=== PATIENT | female | born 1980 | race Hispanic/Latino ===

== ENCOUNTER 2021-11-19 21:32 | Emergency (ER) | payer OTHER, MEDICAID, SELFPAY ==
[2021-11-19 21:48] VITALS: BP 126/72; PULSE 91; RESP 18; TEMP 36.6; O2SAT 98; BMI 26.5
[2021-11-19 21:57] LABS: Bacteria Urine Moderate (10-30); Culture Indicated Urine Specimen Cultured; Mucus Urine 2+ (Negative); RBC Urine 0-1/HPF (0-5/HPF); Squamous Epithelial Cell Urine 1-5 /HPF (0-5/HPF); WBC Urine 30-100/HPF (0-5/HPF)
[2021-11-19 22:29] VITALS: BP 126/72; PULSE 91; RESP 19; O2SAT 98
--- NOTE | 2021-11-19 23:03 | PC.NURSE ---
States she feels a buldge in her perinem
--- NOTE | 2021-11-19 23:05 | PC.NURSE ---
pt states there is a buldge she can feel when when urinating.
--- NOTE | 2021-11-19 23:17 | ED_ITS ---
HPI - Female Genitourinary General Chief complaint: Urogenital-Female Stated complaint: Uti Time Seen by Provider: 11/19/21 23:09 Source: patient Mode of arrival: Ambulatory History of Present Illness HPI Narrative: Patient is a 41-year-old female who presents with painful frequent urination. sHe says it started arm 5:00 p.m. this afternoon she denies any abdominal pain fever or flank pain. She also has a known uterine prolapse which is stable at the time. Related Data Previous Rx's Medication Instructions Recorded medroxyprogesterone 10 mg tablet 10 mg PO SEE INSTRUCTIONS #30 tab 07/09/17 cephalexin 500 mg capsule 500 mg PO BID 5 Days #10 cap 11/19/21 phenazopyridine 100 mg tablet 100 mg PO TID PRN #6 tab 11/19/21 (Pyridium) Allergies Allergy/AdvReac Type Severity Reaction Status Date / Time codeine [CODEINE] Allergy Severe Unverified 01/05/18 12:55 sulfamethoxazole Allergy Severe Unverified 01/05/18 12:55 [From ] trimethoprim [From ] Allergy Severe Unverified 01/05/18 12:55 Review of Systems Review of Systems Narrative: GENERAL: Denies chills,fever HEENT: Denies throat pain RESPIRATORY: Denies dyspnea, cough, wheezing CARDIOVASCULAR: Denies chest pain, palpitations GASTROINTESTINAL: Denies nausea, vomiting : See HPI MUSCULOSKELETAL: Denies extremity pain, injury SKIN: No rash, no laceration, no pruritus NEUROLOGIC: Denies weakness, dizziness, headache, numbness 8 point review of systems is negative except for those stated above and HPI Patient History Surgical History Status post loop electrosurgical excision procedure (LEEP) of cervix alcohol intake frequency: a few times a month Substance Use Type: does not use Exam Initial Vital Signs Initial Vital Signs: Vital Signs Temperature 98 F 11/19/21 21:48 Pulse Rate 91 H 11/19/21 21:48 Respiratory Rate 18 11/19/21 21:48 Blood Pressure 126/72 11/19/21 21:48 Pulse Oximetry 98 11/19/21 21:48 GENERAL: Well-appearing, well-nourished and in no acute distress. CARDIOVASCULAR: peripheral pulses in tact, cap refill <2 sec RESPIRATORY: No respiratory distress, speaks in full sentences without difficulty ABDOMEN: Soft, nontender, no guarding or rebound : No suprapubic pain no flank pain EXTREMITIES: Normal range of motion, no clubbing or edema. Neurovascularly intact NEUROLOGICAL: Cranial nerves II through XII grossly intact. Normal gait and speech. SKIN: Warm, dry, no petechiae, no rashes or lesions. Course Orders Ordered: ED Orders 11/19/21 21:40 Urine Culture Stat Urine Microscopic Stat Discontinued Medications Cefazolin Sodium (Cephalexin 250 Mg Prepack) 1 bottle MISC SEEINSTR ONE Stop: 11/19/21 23:17 Last Admin: 11/19/21 23:34 Dose: 250 mg Documented by: TAYLOR Ibuprofen (Ibuprofen 400 Mg Tablet) 800 mg PO NOW ONE Stop: 11/19/21 23:16 Last Admin: 11/19/21 23:33 Dose: 800 mg Documented by: TAYLOR Phenazopyridine HCl (Phenazopyridine 100 Mg Tablet) 100 mg PO NOW ONE Stop: 11/19/21 23:16 Last Admin: 11/19/21 23:33 Dose: 100 mg Documented by: TAYLOR Vital Signs Vital signs: Vital Signs - 8 hr 11/19/21 21:48 11/19/21 22:29 11/19/21 23:41 Temperature 98 F Pulse Rate 91 H 91 H Respiratory Rate 18 19 Blood Pressure 126/72 126/72 Pulse Oximetry 98 98 98 11/19/21 23:48 Temperature Pulse Rate 90 Respiratory Rate 19 Blood Pressure 128/68 Pulse Oximetry 98 MDM - Female Genitourinary Lab Data Labs: Lab Results 11/19/21 Range/Units 21:40 Urine RBC 0-1/hpf (0-5/HPF) Urine WBC 30-100/hpf H (0-5/HPF) Ur Squamous Epith Cells 1-5 /hpf (0-5/HPF) Urine Bacteria Moderate (10-30) H (None) Urine Mucus 2+ H (Negative) Ur Culture Indicated? Specimen cultured Point of Care Testing Test Results Negative Urine Dip Bedside Urine Glucose Negative Bedside Urine Bilirubin - Negative Bedside Urine Ketone - Negative Urine Specific [place] 1.025 Bedside Urine Occult Blood ++ Bedside Urine pH 6.0 Bedside Urine Protein + 30 Bedside Urine Urobilinogen - Negative Bedside Urine Nitrite + Positive Bedside Urine Leukocytes - Negative Esterase Discharge Plan Departure Patient Disposition: Home Clinical Impression: Urinary tract infection Instructions: DI for Urinary Tract Infection (UTI) Activity Restrictions/Additional Instructions: *You have been diagnosed with UTI *What to do: *Continue to take medications as directed Keflex 500 mg twice daily for 5 days Pyridium 100 mg 3 times a day only if needed for painful frequent urination *Follow up with your primary care provider in 2-3 days or call [phone] *Return to ER if you should have fever chills increasing pain or any new, worsening or concerning symptoms Prescriptions: New cephalexin 500 mg capsule 500 mg PO BID 5 Days Qty: 10 0RF phenazopyridine [Pyridium] 100 mg tablet 100 mg PO TID PRN (Reason: pain) Qty: 6 0RF No Action medroxyprogesterone 10 MG tablet 10 mg PO SEE INSTRUCTIONS Qty: 30 0RF Referrals: Ashleigh Renner MD [Primary Care Provider] -
[2021-11-19] MEDS: IBUPROFEN 400 MG TABLET 800 MG PO (23:33)
[2021-11-19] MEDS: PHENAZOPYRIDINE 100 MG TABLET PO (23:33)
[2021-11-19] MEDS: cephALEXin 250 MG PREPACK 1 BOTTLE MISC (23:34)
[2021-11-19 23:41] VITALS: O2SAT 98
[2021-11-19 23:48] VITALS: BP 128/68; PULSE 90; RESP 19; O2SAT 98
== END 2021-11-19 23:51 | disposition home or self-care (01) ==
PROVIDERS: Emergency Provider Emergency Medicine; Family Provider Specialist; PCP Specialist
DX: N39.0 Urinary tract infection, site not specified (principal)
CPT/HCPCS: 81003; 81015; 81025; 87077; 87086; 87186; 99283

== ENCOUNTER 2024-02-21 03:59 | Emergency (ER) | payer MEDICAID, OTHER, SELFPAY ==
[2024-02-21 04:18] VITALS: BP 143/81; PULSE 96; RESP 20; O2SAT 97; BMI 32.1
[2024-02-21 04:24] VITALS: TEMP 36.4
[2024-02-21 04:29] VITALS: PULSE 82; O2SAT 98
[2024-02-21 04:30] VITALS: BP 133/80; PULSE 86; O2SAT 98
[2024-02-21 04:39] LABS: Urine Volume Low Vol <10mL (spun)
[2024-02-21 04:40] LABS: Bacteria Urine Few (2-10); Mucus Urine 2+ (Negative); RBC Urine 10-30/HPF (0-5/HPF); Squamous Epithelial Cell Urine 1-5 /HPF (0-5/HPF); WBC Urine 5-10/HPF (0-5/HPF)
[2024-02-21 05:00] VITALS: BP 131/76; PULSE 78; O2SAT 100
--- NOTE | 2024-02-21 05:22 | ED.GENADULT ---
HPI - General Adult General Chief complaint: Abdominal Pain Stated complaint: abdominal pain Time Seen by Provider: 02/21/24 05:22 Source: patient Mode of arrival: Ambulatory History of Present Illness HPI narrative: 43-year-old female presents with complaint of abdominal pain. Patient denies any fevers or chills, no vomiting or nausea. She describes feeling a little bit bloated pain that is sometimes feels like little nerves or something pulling or tugging in her belly. She denies any back or flank pain. She states she did recently start her menses. She denies any dysuria urgency or frequency. No new vaginal discharge. Patient states stooling normally. She states she has not on any daily medications, denies any recent surgeries. States that she vapes tobacco, denies regular alcohol, she denies any recreational drugs but when asked about her positive drug screen for methamphetamines [facility] in the last couple days she states she thinks that her neighbors are blowing stuff into her apartment and that that might be how she tested positive. She was prescribed an antibiotic, she has not picked it up. She does not wish for an additional prescription she states she can go and get it. Records were obtained from [facility] show that patient has a positive for methamphetamines, patient had cephalexin prescription sent to [facility] in [place]. There is a culture pending. Related Data Previous Rx's Medication Instructions Recorded medroxyprogesterone 10 mg tablet 10 mg PO SEE INSTRUCTIONS #30 tabs 07/09/17 phenazopyridine 100 mg tablet 100 mg PO TID PRN pain 6 doses #6 11/19/21 (Pyridium) tabs Allergies Allergy/AdvReac Type Severity Reaction Status Date / Time codeine [CODEINE] Allergy Severe Unverified 01/05/18 12:55 sulfamethoxazole Allergy Severe Unverified 01/05/18 12:55 [From SEPTRA] trimethoprim [From MAYRA] Allergy Severe Unverified 01/05/18 12:55 Review of Systems Review of Systems ROS Unobtainable: All systems reviewed & are unremarkable except as noted in HPI and below Patient History Surgical History Status post loop electrosurgical excision procedure (LEEP) of cervix Social History (Reviewed 02/23/24 @ 08:51 by JESSENIA Lynch Smoking Status: Never smoker Smoking Status: Never smoker alcohol intake frequency: a few times a month Substance Use Type: does not use Exam Narrative Exam Narrative: GENERAL: Alert and oriented x three, mild distress. Slightly pressured speech patient jumps from topic to topic but overall can maintain a conversation. HEENT: Head normocephalic, atraumatic, EOMI, pupils reactive, face symmetric, moist mucous membranes NECK: Supple, full range of motion CARDIOVASCULAR: Regular rate and rhythm without murmurs, rubs or gallops. RESPIRATORY: Breath sounds equal bilaterally, no wheezes rales or rhonchi. ABDOMEN: Soft, nontender. Normoactive bowel sounds all 4 quadrants. No guarding or rebound, rigidity, no mass : No CVA tenderness EXTREMITIES: Normal range of motion, no clubbing or edema. Neurovascularly intact NEUROLOGICAL: Cranial nerves II through XII grossly intact. Moving all extremities SKIN: Warm, dry, no petechiae, no rashes or lesions. Initial Vital Signs Initial Vital Signs: Vital Signs Pulse Rate 96 H 02/21/24 04:18 Respiratory Rate 20 02/21/24 04:18 Blood Pressure 143/81 H 02/21/24 04:18 Pulse Oximetry 97 02/21/24 04:18 Oxygen Delivery Method Room Air 02/21/24 04:18 Course Orders Ordered: ED Orders 02/21/24 04:20 Urine Culture Stat Urine Microscopic Stat 02/21/24 05:32 CBC Auto Diff [Complete Blood Count AUTO DIFF] Stat CMP [Comprehensive Metabolic Panel] Stat Lipase Stat Vital Signs Vital signs: Vital Signs - 8 hr 02/21/24 04:18 02/21/24 04:24 Temperature 97.6 F Pulse Rate 96 H Respiratory Rate 20 Blood Pressure 143/81 H Pulse Oximetry 97 Oxygen Delivery Method Room Air Medical Decision Making Lab Data 02/21/24 04:33 02/21/24 04:33 Labs: Lab Results 02/21/24 02/21/24 Range/Units 04:20 04:33 WBC 7.9 (4.5-11.0) X10^3/uL RBC 4.41 (4.0-5.2) X10^6/uL Hgb 13.0 (12.0-16.0) g/dL Hct 39.6 (36-46) % MCV 89.8 (80-100) fL MCH 29.6 (26-34) PG MCHC 33.0 (30-36) % RDW 13.8 (11.6-14.8) % Plt Count 332 (150-400) X10^3/uL Neut % (Auto) 59.0 (50-75) % Lymph % (Auto) 27.1 (25-40) % [place] % (Auto) 10.9 (3-14) % Eos % (Auto) 2.5 (2-4) % Baso % (Auto) 0.5 (0-2) % Neut # (Auto) 4700 (9181-3727) /uL Lymph # (Auto) 2100 (6443-3123) /uL [place] # (Auto) 900 (0-900) /uL Eos # (Auto) 200 (0-450) /uL Baso # (Auto) 0 (0-100) /uL Sodium 137 (137-145) mmol/L Potassium 4.3 (3.4-5.1) mmol/L Chloride 108 H (98-107) mmol/L Carbon Dioxide 28 (22-32) mmol/L BUN 11 (7-17) mg/dL Creatinine 0.58 (0.52-1.04) mg/dL Estimated GFR > 60 (>60) mL/min BUN/Creatinine Ratio 19.0 (6-22) Glucose 105 H (70-100) mg/dL Calcium 8.5 (8.4-10.2) mg/dL Total Bilirubin 0.4 (0.2-1.3) mg/dL AST 26 (14-36) IU/L ALT 21 (<35) IU/L Alkaline Phosphatase 88 (38-126) U/L Total Protein 6.4 (6.3-8.2) g/dL Albumin 3.7 (3.5-5.0) g/dL Globulin 2.7 (1.7-4.1) g/dL Albumin/Globulin Ratio 1.4 (1.0-2.8) Lipase 67 (23-300) U/L Urine RBC 10-30/hpf H (0-5/HPF) Urine WBC 5-10/hpf H (0-5/HPF) Ur Squamous Epith Cells 1-5 /hpf (0-5/HPF) Urine Bacteria Few (2-10) H (None) Urine Mucus 2+ H (Negative) Vol Urine Centrifuged Low vol <10ml (spun) A Point of Care Testing Test Results Negative Urine Dip Bedside Urine Glucose Negative Bedside Urine Bilirubin - Negative Bedside Urine Ketone - Negative Urine Specific [place] 1.030 Bedside Urine Occult Blood +++ Bedside Urine pH 6.0 Bedside Urine Protein - Negative Bedside Urine Urobilinogen - Negative Bedside Urine Nitrite - Negative Bedside Urine Leukocytes - Negative Esterase Point of care testing: Point of Care Testing Test Results Negative Urine Dip Bedside Urine Glucose Negative Bedside Urine Bilirubin - Negative Bedside Urine Ketone - Negative Urine Specific [place] 1.030 Bedside Urine Occult Blood +++ Bedside Urine pH 6.0 Bedside Urine Protein - Negative Bedside Urine Urobilinogen - Negative Bedside Urine Nitrite - Negative Bedside Urine Leukocytes - Negative Esterase MDM Narrative Medical decision making narrative: 43-year-old female with complaint, discomfort, patient was found to have a suspected UTI was prescribed antibiotic but has not started it, she did have labs including CBC, CMP lipase, TSH which overall were appropriate in 02/19/2024. Patient incidentally did test positive for methamphetamines at that time. She has not picked up her prescription sound she also had a pelvic ultrasound that showed IUD in place at that time. Patient's abdominal exam here is benign, urine is also consistent with infection here. Patient's labs white count of 7.9 hemoglobin of 13 platelets of 332. Sodium 137 potassium 4.3 chloride of 108 CO2 of 28 BUN 11 creatinine 0.58, glucose of 105, LFTs are normal with a normal lipase. Patient has benign exam adult exam with recent labs today and from the which are overall reassuring. Patient is felt appropriate for discharge. She was recommended to start the antibiotic prescribed, was offered to have a 1 sent urine and [place] if she preferred. She states she will picker and sorter load and unload the 1 that has already been prescribed. Discharge Plan Departure Patient Disposition: Home Clinical Impression: UTI (urinary tract infection) Qualifiers: Urinary tract infection type: acute cystitis Hematuria presence: with hematuria Qualified Code(s): N30.01 - Acute cystitis with hematuria Activity Restrictions/Additional Instructions: You do appear to have an infection in her urine, picker and sorter load and unload the prescription sent to [facility] and start this today. Please return for fevers, new or worsening abdominal back or flank pain, persistent vomiting, lightheadedness or passing out or other new or concerning changes. Prescriptions: No Action medroxyprogesterone 10 MG tablet 10 mg PO SEE INSTRUCTIONS Qty: 30 0RF phenazopyridine [Pyridium] 100 mg tablet 100 mg PO TID PRN (Reason: pain) Qty: 6 0RF Referrals: Ashleigh Renner MD [Primary Care Provider] - Stand Alone Forms: Patient Portal/API
[2024-02-21 05:30] VITALS: BP 134/76; PULSE 86; O2SAT 99
[2024-02-21 05:40] LABS: Add Manual Diff / Slide Review NO; Basophils Absolute Auto 0 /uL (0-100); Basophils Percent Auto 0.5 % (0-2); Eosinophils Absolute Auto 200 /uL (0-450); Eosinophils Percent Auto 2.5 % (2-4); Hematocrit 39.6 % (36-46); Lymphocytes Absolute Auto 2100 /uL (1100-4500); Lymphocytes Percent Auto 27.1 % (25-40); Mean Corpuscular Hemoglobin 29.6 PG (26-34); Mean Corpuscular Volume 89.8 fL (80-100); Monocytes Absolute Auto 900 /uL (0-900); Monocytes Percent Auto 10.9 % (3-14); Neutrophils Absolute Auto 4700 /uL (1500-7000); Platelet Count 332 X10^3/uL (150-400); Red Blood Cell Count 4.41 X10^6/uL (4.0-5.2); Red Cell Distribution Width 13.8 % (11.6-14.8); White Blood Cell Count 7.9 X10^3/uL (4.5-11.0)
[2024-02-21 05:45] LABS: Alanine Aminotransferase 21 IU/L (<35); Albumin 3.7 g/dL (3.5-5.0); Albumin Globulin Ratio 1.4 (1.0-2.8); Alkaline Phosphatase 88 U/L (38-126); Aspartate Aminotransferase 26 IU/L (14-36); Bilirubin Total 0.4 mg/dL (0.2-1.3); Blood Urea Nitrogen 11 mg/dL (7-17); Calcium 8.5 mg/dL (8.4-10.2); Carbon Dioxide 28 mmol/L (22-32); Chloride 108 mmol/L (98-107); Estimated Glomerular Filt Rate > 60 mL/min (>60); Globulin 2.7 g/dL (1.7-4.1); Glucose 105 mg/dL (70-100); HEMOLYSIS < 15 (0-50); Lipase 67 U/L (23-300); Potassium 4.3 mmol/L (3.4-5.1); Sodium 137 mmol/L (137-145); Total Protein 6.4 g/dL (6.3-8.2)
== END 2024-02-21 06:06 | disposition home or self-care (01) ==
PROVIDERS: Emergency Provider Emergency Medicine; Family Provider Specialist; PCP Specialist
DX: N39.0 Urinary tract infection, site not specified (principal)
CPT/HCPCS: 80053; 81003; 81015; 81025; 83690; 85025; 87077; 87086; 87147; 87186; 99282; 99283

== ENCOUNTER 2024-02-22 01:37 | Emergency (ER) | payer MEDICAID, OTHER, SELFPAY ==
[2024-02-22 01:55] VITALS: BP 140/87; PULSE 84; O2SAT 97
[2024-02-22 01:59] VITALS: BP 140/87; PULSE 87; RESP 18; TEMP 36.8; O2SAT 98; BMI 34.0
[2024-02-22 02:00] VITALS: BP 140/89; PULSE 83; O2SAT 99
--- NOTE | 2024-02-22 02:02 | ED.ABDPAIN ---
HPI - Abdominal Pain General Chief Complaint: Abdominal Pain Stated Complaint: swelling rt leg, same issues as last night Time Seen by Provider: 02/22/24 01:39 History of Present Illness HPI narrative: 43-year-old female presents for evaluation of lower abdominal pain. Patient states that a friend told her that they snuck ?exotic fish eggs? into the lubricant that she and her boyfriend use for sexual intercourse several days ago. Since that time she has felt like her abdomen is full of fluid and she states she feels something moving around biting her. She also states she feels a ?clicking? sensation in her abdomen. Patient has seen previously at [facility] where she underwent a pelvic ultrasound that was reportedly normal with appropriate IUD placement. At [facility] she was evaluated approximately 24 hours ago with normal laboratory work. She has a known urinary tract infection and was prescribed antibiotics at [facility], however as of yesterday she had not started taking these medications.. Triage complaints states that right leg is swollen, however patient clarifies that she feels like her abdominal pain is migrating into her legs. It should be noted that patient had positive methamphetamine screen at [facility]. Related Data Previous Rx's Medication Instructions Recorded medroxyprogesterone 10 mg tablet 10 mg PO SEE INSTRUCTIONS #30 tabs 07/09/17 phenazopyridine 100 mg tablet 100 mg PO TID PRN pain 6 doses #6 11/19/21 (Pyridium) tabs Allergies Allergy/AdvReac Type Severity Reaction Status Date / Time codeine [CODEINE] Allergy Severe Unverified 01/05/18 12:55 sulfamethoxazole Allergy Severe Unverified 01/05/18 12:55 [From SEPTRA] trimethoprim [From SEPTRA] Allergy Severe Unverified 01/05/18 12:55 Review of Systems Review of Systems Narrative: See HPI Patient History Surgical History Status post loop electrosurgical excision procedure (LEEP) of cervix Social History Smoking Status: Never smoker Smoking Status: Never smoker alcohol intake frequency: a few times a month Substance Use Type: does not use Exam Initial Vital Signs Initial Vital Signs: Vital Signs Pulse Rate 84 02/22/24 01:55 Blood Pressure 140/87 02/22/24 01:55 Pulse Oximetry 97 02/22/24 01:55 Const: Awake, alert, appears older than stated age Cardiac: regular rate, regular rhythm RESP: unlabored, clear bilaterally, no wheezing GI: Soft, nontender, nondistended, no rebound, no guarding MSK: Atraumatic, full range of motion, pulses equal Skin: Warm, Dry, intact, no rashes Neuro: AO x3, CN II-XII grossly intact, moves all extremities Course Orders Ordered: ED Orders 02/22/24 02:04 XR KUB Stat Vital Signs Vital signs: Vital Signs - 8 hr 02/22/24 01:55 02/22/24 01:55 02/22/24 01:59 Temperature 98.3 F Pulse Rate 84 87 Respiratory Rate 18 Blood Pressure 140/87 140/87 Pulse Oximetry 97 98 Oxygen Delivery Method Room Air 02/22/24 02:00 02/22/24 02:00 02/22/24 02:30 Temperature Pulse Rate 83 85 Respiratory Rate Blood Pressure 140/89 Pulse Oximetry 99 99 Oxygen Delivery Method 02/22/24 02:30 02/22/24 03:00 02/22/24 03:00 Temperature Pulse Rate 84 Respiratory Rate Blood Pressure 128/77 144/81 H Pulse Oximetry 100 Oxygen Delivery Method MDM - Abdominal Pain Differential Diagnosis Differential diagnosis: Likely abdominal pain, constipation and small bowel obstruction MDM Narrative Medical decision making narrative: Lower abdominal pain, known urinary tract infection and has been prescribed antibiotics. Recent laboratory work normal. Recent ultrasound performed at outside hospital normal. Patient states she feels as though something is moving around inside of her and biting her. With multiple recent normal workups and positive amphetamine screen this is likely delusional related to amphetamine use. Little utility in repeating laboratory work at this time. KUB shows significant right-sided stool burden concerning for constipation. Patient informed of x-ray imaging, recommended that she continue antibiotics as prescribed and to take a daily stool softener for constipation. Discharge Plan Departure Patient Disposition: Home Clinical Impression: UTI (urinary tract infection) Qualifiers: Urinary tract infection type: acute cystitis Hematuria presence: with hematuria Qualified Code(s): N30.01 - Acute cystitis with hematuria Constipation Qualifiers: Constipation type: unspecified constipation type Qualified Code(s): K59.00 - Constipation, unspecified Instructions: DI for Constipation Activity Restrictions/Additional Instructions: The x-ray of your abdomen show that you have a large volume stool (poop) in your abdomen. Your laboratory work from yesterday did not show any acute findings. Take a daily stool softener such as MiraLax or docusate. Continue to take your antibiotics. Prescriptions: No Action medroxyprogesterone 10 MG tablet 10 mg PO SEE INSTRUCTIONS Qty: 30 0RF phenazopyridine [Pyridium] 100 mg tablet 100 mg PO TID PRN (Reason: pain) Qty: 6 0RF Referrals: Ashleigh Renner MD [Primary Care Provider] - Stand Alone Forms: Patient Portal/API
--- NOTE | 2024-02-22 02:04 | DI.RAD.S_ITS ---
PROCEDURE: XR KUB INDICATIONS: LOWER ABD PAIN TECHNIQUE: One view of the abdomen acquired. COMPARISON: None. FINDINGS: Surgical changes and devices: There is an IUD in pelvis, presumably within the uterus. Bowel: Bowel gas pattern is nonobstructive. Moderate amount of stool in colon. Soft tissues: No suspicious abdominal calcifications. Visualized solid organ contours appear normal in size. Bones: No suspicious bony lesions. IMPRESSION: Nonobstructive bowel gas pattern. Moderate amount stool in colon. No significant discrepancy with the water resource engineering specialist radiology preliminary report. Dictated by: Keith Jung M.D. on 02/22/2024 at 8:23 Approved by: Keith Jung M.D. on 02/22/2024 at 8:24
[2024-02-22 02:30] VITALS: BP 128/77; PULSE 85; O2SAT 99
[2024-02-22 03:00] VITALS: BP 144/81; PULSE 84; O2SAT 100
== END 2024-02-22 03:15 | disposition home or self-care (01) ==
PROVIDERS: Emergency Provider Emergency Medicine; Family Provider Specialist; PCP Specialist
DX: N39.0 Urinary tract infection, site not specified (principal); K59.00 Constipation, unspecified
CPT/HCPCS: 74018; 99281; 99283

== ENCOUNTER 2024-02-23 08:32 | Emergency (ER) | payer MEDICAID, OTHER, SELFPAY ==
[2024-02-23 08:35] VITALS: BP 109/59; PULSE 99; RESP 18; TEMP 36.5; O2SAT 97; BMI 33.0
--- NOTE | 2024-02-23 08:48 | ED_ITS ---
HPI - General Adult General Chief complaint: Urogenital-Female Stated complaint: pain back lt side kidneys hurt heart fluttering Time Seen by Provider: 02/23/24 08:36 Source: patient Mode of arrival: Ambulatory Limitations: no limitations History of Present Illness HPI narrative: Patient is a 43-year-old female. Has had multiple emergency department visits in the past 2-3 days both that this facility and also apparently at an outside facility for multiple complaints. She was currently on antibiotics for urinary tract infection. The last time that she was here in the ER she would yet to pick those medicines up but she states that she has been taking them. She did have some dysuria last evening. She took a Pyridium for the symptoms. She is here because she has pain in her lower left back/left buttocks. She also states that feels like her heart is fluttering. She also has upper abdominal pain. She states that it feels like things are ?crawling? around inside of her abdomen. She also has had periods of time where she has the sensation of things crawling on her skin. She denies any change in her bowel habits. She states that it feels like when she eats it just comes right out of her stomach into her abdomen. She states the last time that she was seen in an emergency department was yesterday at an outside facility. Here at this facility she has had an abdominal x-ray which was unremarkable. Labs which were unremarkable. Will attempt to obtain records from outside facility to see if she has had any other advanced imaging. She reports positive results to almost every review of systems question to include chest pain, palpitations, nausea although she does deny shortness of breath Related Data Previous Rx's Medication Instructions Recorded medroxyprogesterone 10 mg tablet 10 mg PO SEE INSTRUCTIONS #30 tabs 07/09/17 phenazopyridine 100 mg tablet 100 mg PO TID PRN pain 6 doses #6 11/19/21 (Pyridium) tabs Allergies Allergy/AdvReac Type Severity Reaction Status Date / Time codeine [CODEINE] Allergy Severe Unverified 01/05/18 12:55 sulfamethoxazole Allergy Severe Unverified 01/05/18 12:55 [From ] trimethoprim [From ] Allergy Severe Unverified 01/05/18 12:55 Review of Systems Review of Systems ROS Unobtainable: All systems reviewed & are unremarkable except as noted in HPI and below Patient History Surgical History Status post loop electrosurgical excision procedure (LEEP) of cervix Social History Smoking Status: Never smoker Smoking Status: Never smoker alcohol intake frequency: a few times a month Substance Use Type: does not use Exam Initial Vital Signs Initial Vital Signs: Vital Signs Temperature 97.7 F 02/23/24 08:35 Pulse Rate 99 H 02/23/24 08:35 Respiratory Rate 18 02/23/24 08:35 Blood Pressure 109/59 L 02/23/24 08:35 Pulse Oximetry 97 02/23/24 08:35 Oxygen Delivery Method Room Air 02/23/24 08:35 Const Other: Appears somewhat disheveled HENMT Head: normal to inspection and normocephalic Resp Effort & Inspection: normal respiratory effort Auscultation: clear to auscultation bilaterally Cardio Rate: regular rate Rhythm: regular rhythm GI Inspection: normal to inspection and non-distended Palpation: soft, No firm, No guarding and tender (Upper abdomen) Back/Spine/Pelvis Back: No CVA tenderness Skin Other: No rashes noted Neuro General: patient alert, patient awake, patient oriented x3 and moves all extremities Extrem General: capillary refill normal Course Orders Ordered: ED Orders 02/23/24 09:05 EKG-12 Lead Stat 02/23/24 09:15 CT abdomen pelvis w con Stat 02/23/24 09:25 Complete Blood Count AUTO DIFF Stat Comprehensive Metabolic Panel Stat Lipase Stat Test Serum,Qual Stat Vital Signs Vital signs: Vital Signs - 8 hr 02/23/24 08:35 02/23/24 09:23 02/23/24 09:23 Temperature 97.7 F Pulse Rate 99 H 83 Respiratory Rate 18 Blood Pressure 109/59 L 121/72 Pulse Oximetry 97 98 Oxygen Delivery Method Room Air 02/23/24 09:30 02/23/24 09:30 02/23/24 09:46 Temperature Pulse Rate 79 94 H Respiratory Rate Blood Pressure 121/71 Pulse Oximetry 98 99 Oxygen Delivery Method 02/23/24 09:46 02/23/24 10:00 02/23/24 10:00 Temperature Pulse Rate 72 Respiratory Rate Blood Pressure 124/61 123/73 Pulse Oximetry 99 Oxygen Delivery Method Medical Decision Making Medical Records Medical records reviewed: Yes I reviewed the patient's medical records. Lab Data Lab results reviewed: Yes I reviewed the patient's lab results. 02/23/24 09:25 02/23/24 09:25 Labs: Lab Results 02/23/24 Range/Units 09:25 WBC 8.9 (4.5-11.0) X10^3/uL RBC 4.66 (4.0-5.2) X10^6/uL Hgb 13.7 (12.0-16.0) g/dL Hct 41.4 (36-46) % MCV 88.9 (80-100) fL MCH 29.4 (26-34) PG MCHC 33.1 (30-36) % RDW 13.5 (11.6-14.8) % Plt Count 367 (150-400) X10^3/uL Neut % (Auto) 76.2 H (50-75) % Lymph % (Auto) 14.9 L (25-40) % [place] % (Auto) 7.6 (3-14) % Eos % (Auto) 0.9 L (2-4) % Baso % (Auto) 0.4 (0-2) % Neut # (Auto) 6800 (3053-6819) /uL Lymph # (Auto) 1300 (3015-3786) /uL [place] # (Auto) 700 (0-900) /uL Eos # (Auto) 100 (0-450) /uL Baso # (Auto) 0 (0-100) /uL Sodium 138 (137-145) mmol/L Potassium 3.8 (3.4-5.1) mmol/L Chloride 106 (98-107) mmol/L Carbon Dioxide 27 (22-32) mmol/L BUN 8 (7-17) mg/dL Creatinine 0.59 (0.52-1.04) mg/dL Estimated GFR > 60 (>60) mL/min BUN/Creatinine Ratio 13.6 (6-22) Glucose 103 H (70-100) mg/dL Calcium 8.3 L (8.4-10.2) mg/dL Total Bilirubin 0.5 (0.2-1.3) mg/dL AST 25 (14-36) IU/L ALT 22 (<35) IU/L Alkaline Phosphatase 77 (38-126) U/L Total Protein 6.7 (6.3-8.2) g/dL Albumin 4.1 (3.5-5.0) g/dL Globulin 2.6 (1.7-4.1) g/dL Albumin/Globulin Ratio 1.6 (1.0-2.8) Lipase 46 (23-300) U/L Serum , Qual Negative (Negative) Urine Dip Bedside Urine Glucose Negative Bedside Urine Bilirubin - Negative Bedside Urine Ketone - Negative Urine Specific [place] 1.030 Bedside Urine Occult Blood - Negative Bedside Urine pH 6.0 Bedside Urine Protein - Negative Bedside Urine Urobilinogen - Negative Bedside Urine Nitrite - Negative Bedside Urine Leukocytes - Negative Esterase Point of care testing: Urine Dip Bedside Urine Glucose Negative Bedside Urine Bilirubin - Negative Bedside Urine Ketone - Negative Urine Specific [place] 1.030 Bedside Urine Occult Blood - Negative Bedside Urine pH 6.0 Bedside Urine Protein - Negative Bedside Urine Urobilinogen - Negative Bedside Urine Nitrite - Negative Bedside Urine Leukocytes - Negative Esterase Imaging Data CT scan - abdomen/pelvis: Radiologist's Impression: PROCEDURE: CT ABDOMEN PELVIS W CON INDICATIONS: Generalized abdominal pain TECHNIQUE: After the administration of intravenous contrast, axial sections acquired from the lung bases to the pubic symphysis. Coronal and sagittal reformats were performed. For radiation dose reduction, the following was used: automated exposure control, adjustment of mA and/or kV according to patient size. COMPARISON: None. FINDINGS: Image quality: Diagnostic. Lower Chest: Lung bases are clear with small hiatal hernia. ABDOMEN: Liver: No solid mass. Gallbladder: No radiopaque gallstones or wall thickening. Biliary ducts: No biliary dilation. Pancreas: No ductal dilation. Spleen: Size is within normal limits. Adrenal Glands: No adrenal nodules. Kidneys and Ureters: No hydronephrosis. No solid mass. No complex renal cystic lesion which requires follow up. Stomach and Bowel: Normal colonic caliber, without significant wall thickening. Normal appendix. Peritoneum: No abnormal intraperitoneal fluid. No free air. Ventral Wall: No significant ventral hernia. Abdominal Nodes: No retroperitoneal or mesenteric adenopathy by size criteria. Vessels: Aorta and inferior vena cava are normal in size. PELVIS: Pelvic Organs: Unremarkable. IUD is present. Bladder: No bladder wall thickening, accounting for underdistention. Pelvic Nodes: No enlarged lymph nodes. Miscellaneous: No inguinal hernias are seen. Bones: No aggressive osseous abnormality. Visualized osseous structures appear intact without acute fracture or focal destructive lesion. No acute compression fractures of the imaged spine. IMPRESSION: CT abdomen and pelvis without acute abnormalities to explain patient's symptoms. ECG Data Attestation: I personally reviewed and interpreted this ECG as follows: Interpretation: Sinus rhythm Ventricular rate of 81 Normal axis Normal QRS Normal QTC No ST T wave changes MDM Narrative Medical decision making narrative: It appears with evaluation of her prior emergency department visits that she has not had a CT scan of her abdomen. That was completed today in his showed no acute pathology. Her labs unremarkable. Her exam is unremarkable. According to the prior notes she was positive for methamphetamine in her urine a couple days ago. Suspect that this maybe somewhat of the cause of her presenting symptoms today. I reassured the patient that everything appeared to be okay and encouraged that she continue to take her antibiotics for her urinary tract infection. She expressed understanding and agreement. Discharge Plan Departure Patient Disposition: Home Clinical Impression: Abdominal pain Instructions: DI for Abdominal Pain-Adult Activity Restrictions/Additional Instructions: I do recommend that you continue to take the antibiotics for your urinary tract infection until the course is complete. Contact your primary doctor for a follow-up. Prescriptions: No Action medroxyprogesterone 10 MG tablet 10 mg PO SEE INSTRUCTIONS Qty: 30 0RF phenazopyridine [Pyridium] 100 mg tablet 100 mg PO TID PRN (Reason: pain) Qty: 6 0RF Referrals: Ashleigh Renner MD [Primary Care Provider] - Stand Alone Forms: Patient Portal/API
--- NOTE | 2024-02-23 09:15 | DI.CT.S_ITS ---
PROCEDURE: CT ABDOMEN PELVIS W CON INDICATIONS: Generalized abdominal pain TECHNIQUE: After the administration of intravenous contrast, axial sections acquired from the lung bases to the pubic symphysis. Coronal and sagittal reformats were performed. For radiation dose reduction, the following was used: automated exposure control, adjustment of mA and/or kV according to patient size. COMPARISON: None. FINDINGS: Image quality: Diagnostic. Lower Chest: Lung bases are clear with small hiatal hernia. ABDOMEN: Liver: No solid mass. Gallbladder: No radiopaque gallstones or wall thickening. Biliary ducts: No biliary dilation. Pancreas: No ductal dilation. Spleen: Size is within normal limits. Adrenal Glands: No adrenal nodules. Kidneys and Ureters: No hydronephrosis. No solid mass. No complex renal cystic lesion which requires follow up. Stomach and Bowel: Normal colonic caliber, without significant wall thickening. Normal appendix. Peritoneum: No abnormal intraperitoneal fluid. No free air. Ventral Wall: No significant ventral hernia. Abdominal Nodes: No retroperitoneal or mesenteric adenopathy by size criteria. Vessels: Aorta and inferior vena cava are normal in size. PELVIS: Pelvic Organs: Unremarkable. IUD is present. Bladder: No bladder wall thickening, accounting for underdistention. Pelvic Nodes: No enlarged lymph nodes. Miscellaneous: No inguinal hernias are seen. Bones: No aggressive osseous abnormality. Visualized osseous structures appear intact without acute fracture or focal destructive lesion. No acute compression fractures of the imaged spine. IMPRESSION: CT abdomen and pelvis without acute abnormalities to explain patient's symptoms. Dictated by: Ty Staley M.D. on 02/23/2024 at 10:45 Approved by: Ty Staley M.D. on 02/23/2024 at 10:49
[2024-02-23 09:23] VITALS: BP 121/72; PULSE 83; O2SAT 98
[2024-02-23 09:30] VITALS: BP 121/71; PULSE 79; O2SAT 98
[2024-02-23 09:39] LABS: Add Manual Diff / Slide Review NO; Basophils Absolute Auto 0 /uL (0-100); Basophils Percent Auto 0.4 % (0-2); Eosinophils Absolute Auto 100 /uL (0-450); Eosinophils Percent Auto 0.9 % (2-4); Hematocrit 41.4 % (36-46); Hemoglobin 13.7 g/dL (12.0-16.0); Lymphocytes Absolute Auto 1300 /uL (1100-4500); Lymphocytes Percent Auto 14.9 % (25-40); Mean Corpuscular HGB Conc 33.1 % (30-36); Mean Corpuscular Hemoglobin 29.4 PG (26-34); Mean Corpuscular Volume 88.9 fL (80-100); Monocytes Absolute Auto 700 /uL (0-900); Monocytes Percent Auto 7.6 % (3-14); Neutrophils Absolute Auto 6800 /uL (1500-7000); Neutrophils Percent Auto 76.2 % (50-75); Platelet Count 367 X10^3/uL (150-400); Red Blood Cell Count 4.66 X10^6/uL (4.0-5.2); Red Cell Distribution Width 13.5 % (11.6-14.8); White Blood Cell Count 8.9 X10^3/uL (4.5-11.0)
[2024-02-23 09:46] VITALS: BP 124/61; PULSE 94; O2SAT 99
[2024-02-23 09:48] LABS: Alanine Aminotransferase 22 IU/L (<35); Albumin 4.1 g/dL (3.5-5.0); Albumin Globulin Ratio 1.6 (1.0-2.8); Alkaline Phosphatase 77 U/L (38-126); Aspartate Aminotransferase 25 IU/L (14-36); BUN Creatinine Ratio 13.6 (6-22); Bilirubin Total 0.5 mg/dL (0.2-1.3); Blood Urea Nitrogen 8 mg/dL (7-17); Calcium 8.3 mg/dL (8.4-10.2); Carbon Dioxide 27 mmol/L (22-32); Chloride 106 mmol/L (98-107); Estimated Glomerular Filt Rate > 60 mL/min (>60); Globulin 2.6 g/dL (1.7-4.1); Glucose 103 mg/dL (70-100); HEMOLYSIS < 15 (0-50); Lipase 46 U/L (23-300); Potassium 3.8 mmol/L (3.4-5.1); Sodium 138 mmol/L (137-145); Total Protein 6.7 g/dL (6.3-8.2)
[2024-02-23 09:54] LABS: Pregnancy Test Serum,Qual Negative (Negative)
[2024-02-23 10:00] VITALS: BP 123/73; PULSE 72; O2SAT 99
[2024-02-23 11:10] VITALS: BP 115/69; PULSE 85; TEMP 36.6; O2SAT 100
== END 2024-02-23 11:05 | disposition home or self-care (01) ==
PROVIDERS: Emergency Provider Emergency Medicine; Family Provider Specialist; PCP Specialist
DX: R10.10 Upper abdominal pain, unspecified (principal); I49.9 Cardiac arrhythmia, unspecified; M54.50 Low back pain, unspecified
CPT/HCPCS: 36415; 74177; 80053; 81003; 83690; 84703; 85025; 93005; 99284; Q9967

== ENCOUNTER 2024-02-24 03:31 | Emergency (ER) | payer OTHER, MEDICAID, SELFPAY ==
[2024-02-24 03:36] VITALS: BP 134/63; PULSE 92; RESP 18; TEMP 37.1; O2SAT 100; BMI 33.0
--- NOTE | 2024-02-24 03:40 | DI.CT.S_ITS ---
PROCEDURE: CT HEAD/BRAIN WO CON INDICATIONS: new psychosis TECHNIQUE: Noncontrast 4.5 mm thick angled axial sections acquired from the foramen magnum to the vertex, with coronal and sagittal reformats. For radiation dose reduction, the following was used: automated exposure control, adjustment of mA and/or kV according to patient size. COMPARISON: None. FINDINGS: Image quality: Diagnostic. CSF spaces: Basal cisterns are patent. No extra-axial fluid collections. Ventricles are normal in size and shape. Brain: No midline shift. No intracranial masses or hemorrhage. Martin-white matter interface is normal. Skull and face: Calvarium and visualized facial bones are intact, without suspicious lesions. Sinuses: Left maxillary sinus mucosal thickening. Remainder of the paranasal sinuses appear clear. Mastoid air cells are well-aerated. IMPRESSION: No acute intracranial pathology. Left maxillary sinus disease. No significant discrepancy with the night cleaner radiology preliminary report. Dictated by: Ty Staley M.D. on 02/24/2024 at 7:01 Approved by: Ty Staley M.D. on 02/24/2024 at 7:02
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
[2024-02-24 04:10] LABS: Ur Creatinine Normal (Normal); Ur Specific Gravity Normal (Normal); Urine Amphetamines Positive (Negative); Urine Cocaine Negative (Negative); Urine Opiates Negative (Negative); Urine THC Negative (Negative); Urine pH Normal (Normal)
[2024-02-24 04:11] LABS: Urine Barbiturates Negative (Negative); Urine Benzodiazepines Negative (Negative); Urine MDMA Positive (Negative); Urine Methadone Negative (Negative); Urine Methamphetamines Positive (Negative); Urine Oxycodone Negative (Negative); Urine Phencyclidine Negative (Negative); Urine Tricyclic Antidepressant Negative (Negative)
== END 2024-02-24 04:21 | disposition home or self-care (01) ==
PROVIDERS: Emergency Provider Emergency Medicine; Family Provider Specialist; PCP Specialist
DX: F16.90 Hallucinogen use, unspecified, uncomplicated (principal); F15.10 Other stimulant abuse, uncomplicated; F29 Unspecified psychosis not due to a substance or known physiological condition
CPT/HCPCS: 70450; 80305; 99281; 99284

== ENCOUNTER 2024-03-05 02:11 | Emergency (ER) | payer OTHER, MEDICAID, SELFPAY ==
--- NOTE | 2024-03-05 02:23 | DI.RAD.S_ITS ---
PROCEDURE: XR CHEST 1V INDICATIONS: chest pain TECHNIQUE: One view of the chest was acquired. COMPARISON: None. FINDINGS: Surgical changes and devices: None. Lungs and pleura: Lungs are clear. No pleural effusions or pneumothorax. Mediastinum: Mediastinal contours appear normal. Heart size is normal. Bones and chest wall: No suspicious bony lesions. Overlying soft tissues appear unremarkable. IMPRESSION: No acute cardiopulmonary abnormality is seen. Note: No significant discrepancy from the preliminary report. Dictated by: Manan Edgar M.D. on 03/05/2024 at 8:55 Approved by: Manan Edgar M.D. on 03/05/2024 at 8:56
[2024-03-05 02:25] VITALS: BP 157/86; PULSE 97; RESP 18; O2SAT 97
--- NOTE | 2024-03-05 02:26 | PC.NURSE ---
IN HOME AIDE note: Patient asked me if I had ever been , because it feels like like the fluttering of feet in my belly. I was doing her EKG and asked her to stay still please. I did her EKG, patient asked if it was normal, I told her I don't know, but I will give it to her doctor to read the results.
[2024-03-05 02:48] LABS: Add Manual Diff / Slide Review NO; Basophils Absolute Auto 100 /uL (0-100); Basophils Percent Auto 0.5 % (0-2); Eosinophils Absolute Auto 100 /uL (0-450); Eosinophils Percent Auto 1.3 % (2-4); Hematocrit 37.2 % (36-46); Hemoglobin 12.6 g/dL (12.0-16.0); Lymphocytes Absolute Auto 2300 /uL (1100-4500); Lymphocytes Percent Auto 23.8 % (25-40); Mean Corpuscular HGB Conc 33.9 % (30-36); Mean Corpuscular Hemoglobin 30.1 PG (26-34); Mean Corpuscular Volume 88.8 fL (80-100); Monocytes Absolute Auto 800 /uL (0-900); Monocytes Percent Auto 8.4 % (3-14); Neutrophils Absolute Auto 6300 /uL (1500-7000); Platelet Count 302 X10^3/uL (150-400); Red Blood Cell Count 4.19 X10^6/uL (4.0-5.2); Red Cell Distribution Width 13.5 % (11.6-14.8); White Blood Cell Count 9.5 X10^3/uL (4.5-11.0)
[2024-03-05 03:02] LABS: Alanine Aminotransferase 20 IU/L (<35); Albumin Globulin Ratio 1.7 (1.0-2.8); Alkaline Phosphatase 83 U/L (38-126); Aspartate Aminotransferase 29 IU/L (14-36); Bilirubin Total 0.4 mg/dL (0.2-1.3); Blood Urea Nitrogen 9 mg/dL (7-17); Carbon Dioxide 27 mmol/L (22-32); Chloride 108 mmol/L (98-107); Creatine Kinase 200 U/L (30-135); Estimated Glomerular Filt Rate > 60 mL/min (>60); Globulin 2.4 g/dL (1.7-4.1); Glucose 114 mg/dL (70-100); HEMOLYSIS 17 (0-50); Potassium 3.5 mmol/L (3.4-5.1); Sodium 139 mmol/L (137-145); Total Protein 6.4 g/dL (6.3-8.2)
[2024-03-05 03:14] LABS: Troponin I < 0.012 ng/mL (0.01-0.034)
[2024-03-05 03:15] VITALS: BP 125/69; PULSE 85; RESP 18; O2SAT 98
--- NOTE | 2024-03-05 03:19 | ED.GENADULT ---
HPI - General Adult General Chief complaint: Dizziness Stated complaint: chest pain, trouble breathing Time Seen by Provider: 03/05/24 02:14 Source: patient Mode of arrival: Ambulatory History of Present Illness HPI narrative: 43-year-old female with history of methamphetamine abuse presents for evaluation of a fluttering sensation in her chest. Patient states that she feels like a kicking sensation in her chest that began while taking a shower earlier this evening. Also reports associated lightheadedness. No medications taken prior to arrival. Related Data Previous Rx's Medication Instructions Recorded medroxyprogesterone 10 mg tablet 10 mg PO SEE INSTRUCTIONS #30 tabs 07/09/17 phenazopyridine 100 mg tablet 100 mg PO TID PRN pain 6 doses #6 11/19/21 (Pyridium) tabs Allergies Allergy/AdvReac Type Severity Reaction Status Date / Time codeine [CODEINE] Allergy Severe Unverified 01/05/18 12:55 sulfamethoxazole Allergy Severe Unverified 01/05/18 12:55 [From MAYRA] trimethoprim [From MAYRA] Allergy Severe Unverified 01/05/18 12:55 Patient History Surgical History Status post loop electrosurgical excision procedure (LEEP) of cervix Social History Smoking Status: Never smoker Smoking Status: Never smoker alcohol intake frequency: a few times a month Substance Use Type: does not use Exam Initial Vital Signs Initial Vital Signs: Vital Signs Pulse Rate 97 H 03/05/24 02:25 Respiratory Rate 18 03/05/24 02:25 Blood Pressure 157/86 H 03/05/24 02:25 Pulse Oximetry 97 03/05/24 02:25 Oxygen Delivery Method Room Air 03/05/24 02:25 Const: Awake, alert, no acute distress, nontoxic appearing Cardiac: regular rate, regular rhythm RESP: unlabored, clear bilaterally, no wheezing GI: Soft, nontender, nondistended, no rebound, no guarding MSK: Atraumatic, full range of motion, pulses equal Skin: Warm, Dry, intact, no rashes Neuro: AO x3, CN II-XII grossly intact, moves all extremities Course Orders Ordered: ED Orders 03/05/24 02:23 Chest [XR chest 1V] Stat EKG-12 Lead Stat 03/05/24 02:30 CBC Auto Diff [Complete Blood Count AUTO DIFF] Stat CMP [Comprehensive Metabolic Panel] Stat Troponin & CK Cardiac Panel Stat Vital Signs Vital signs: Vital Signs - 8 hr 03/05/24 02:25 03/05/24 03:15 Pulse Rate 97 H 85 Respiratory Rate 18 18 Blood Pressure 157/86 H 125/69 Pulse Oximetry 97 98 Oxygen Delivery Method Room Air Room Air Medical Decision Making Lab Data 03/05/24 02:30 03/05/24 02:30 Labs: Lab Results 03/05/24 Range/Units 02:30 WBC 9.5 (4.5-11.0) X10^3/uL RBC 4.19 (4.0-5.2) X10^6/uL Hgb 12.6 (12.0-16.0) g/dL Hct 37.2 (36-46) % MCV 88.8 (80-100) fL MCH 30.1 (26-34) PG MCHC 33.9 (30-36) % RDW 13.5 (11.6-14.8) % Plt Count 302 (150-400) X10^3/uL Neut % (Auto) 66.0 (50-75) % Lymph % (Auto) 23.8 L (25-40) % [place] % (Auto) 8.4 (3-14) % Eos % (Auto) 1.3 L (2-4) % Baso % (Auto) 0.5 (0-2) % Neut # (Auto) 6300 (6229-6390) /uL Lymph # (Auto) 2300 (1167-2696) /uL [place] # (Auto) 800 (0-900) /uL Eos # (Auto) 100 (0-450) /uL Baso # (Auto) 100 (0-100) /uL Sodium 139 (137-145) mmol/L Potassium 3.5 (3.4-5.1) mmol/L Chloride 108 H (98-107) mmol/L Carbon Dioxide 27 (22-32) mmol/L BUN 9 (7-17) mg/dL Creatinine 0.60 (0.52-1.04) mg/dL Estimated GFR > 60 (>60) mL/min BUN/Creatinine Ratio 15.0 (6-22) Glucose 114 H (70-100) mg/dL Calcium 8.0 L (8.4-10.2) mg/dL Total Bilirubin 0.4 (0.2-1.3) mg/dL AST 29 (14-36) IU/L ALT 20 (<35) IU/L Alkaline Phosphatase 83 (38-126) U/L Total Creatine Kinase 200 H (30-135) U/L Troponin I < 0.012 (0.01-0.034) ng/mL Total Protein 6.4 (6.3-8.2) g/dL Albumin 4.0 (3.5-5.0) g/dL Globulin 2.4 (1.7-4.1) g/dL Albumin/Globulin Ratio 1.7 (1.0-2.8) Imaging Data Chest x-ray: Radiologist's Impression: PROCEDURE: XR CHEST 1V INDICATIONS: chest pain TECHNIQUE: One view of the chest was acquired. COMPARISON: None. FINDINGS: Surgical changes and devices: None. Lungs and pleura: Lungs are clear. No pleural effusions or pneumothorax. Mediastinum: Mediastinal contours appear normal. Heart size is normal. Bones and chest wall: No suspicious bony lesions. Overlying soft tissues appear unremarkable. IMPRESSION: No acute cardiopulmonary abnormality is seen. Note: No significant discrepancy from the preliminary report. Dictated by: Manan Edgar M.D. on 03/05/2024 at 8:55 Approved by: Manan Edgar M.D. on 03/05/2024 at 8:56 ECG Data Interpretation: Normal sinus rhythm at 92 beats per minute. Normal axis, normal intervals, no ST T wave changes, no STEMI MDM Narrative Medical decision making narrative: Several hours of central chest pain. Patient states that she feels there is a fluttering kicking sensation in her chest. Numerous ER presentations for the sensation that something is moving inside of her, has had multiple evaluations in our ER and at [facility]. EKG normal sinus rhythm without concerning ischemic findings. Chest x-ray negative for acute process. Troponin undetectable, other laboratory work unremarkable. Low suspicion for ACS. Patient informed of lab and imaging findings, she has a primary care appointment in just 3 days. Advised to keep this appointment as scheduled. Discharge Plan Departure Patient Disposition: Home Clinical Impression: Chest discomfort Instructions: DI for Chest Pain Activity Restrictions/Additional Instructions: Your laboratory work and imaging today is normal. Keep your follow up appointment on the 12th as scheduled Prescriptions: No Action medroxyprogesterone 10 MG tablet 10 mg PO SEE INSTRUCTIONS Qty: 30 0RF phenazopyridine [Pyridium] 100 mg tablet 100 mg PO TID PRN (Reason: pain) Qty: 6 0RF Referrals: Ashleigh Renner MD [Primary Care Provider] - Stand Alone Forms: Patient Portal/API
== END 2024-03-05 03:27 | disposition home or self-care (01) ==
PROVIDERS: Emergency Provider Emergency Medicine; Family Provider Specialist; PCP Specialist
DX: R07.9 Chest pain, unspecified (principal)
CPT/HCPCS: 36415; 71045; 80053; 82550; 84484; 85025; 93005; 93010; 99283; 99284

== ENCOUNTER 2024-03-07 17:53 | Emergency (ER) | payer OTHER, MEDICAID, SELFPAY ==
[2024-03-07 17:57] VITALS: BP 138/80; PULSE 109; RESP 18; TEMP 37; O2SAT 99; BMI 33.0
--- NOTE | 2024-03-07 18:20 | DI.RAD.S_ITS ---
PROCEDURE: XR ABDOMEN 1V INDICATIONS: Abdominal pain TECHNIQUE: One view of the abdomen acquired. COMPARISON: None. FINDINGS: Surgical changes and devices: Intrauterine device projecting over the pelvis. Bowel: Bowel gas pattern is normal. Large burden of stool in the colon. Soft tissues: No suspicious abdominal calcifications. Visualized solid organ contours appear normal in size. Bones: No suspicious bony lesions. IMPRESSION: Large burden of stool, correlate for constipation. Nonobstructive bowel gas pattern. Dictated by: Geovani Guthrie M.D. on 03/07/2024 at 19:07 Approved by: Geovani Guthrie M.D. on 03/07/2024 at 19:08
[2024-03-07 18:40] VITALS: BP 124/74; PULSE 96; O2SAT 98
[2024-03-07 18:42] LABS: Add Manual Diff / Slide Review NO; Basophils Absolute Auto 100 /uL (0-100); Basophils Percent Auto 0.8 % (0-2); Eosinophils Absolute Auto 200 /uL (0-450); Eosinophils Percent Auto 2.5 % (2-4); Hematocrit 40.2 % (36-46); Hemoglobin 13.5 g/dL (12.0-16.0); Lymphocytes Absolute Auto 2300 /uL (1100-4500); Lymphocytes Percent Auto 28.8 % (25-40); Mean Corpuscular HGB Conc 33.5 % (30-36); Mean Corpuscular Hemoglobin 29.8 PG (26-34); Mean Corpuscular Volume 89.1 fL (80-100); Monocytes Absolute Auto 800 /uL (0-900); Monocytes Percent Auto 9.6 % (3-14); Neutrophils Absolute Auto 4600 /uL (1500-7000); Neutrophils Percent Auto 58.3 % (50-75); Platelet Count 311 X10^3/uL (150-400); Red Blood Cell Count 4.51 X10^6/uL (4.0-5.2); Red Cell Distribution Width 13.7 % (11.6-14.8); White Blood Cell Count 7.9 X10^3/uL (4.5-11.0)
[2024-03-07 18:45] VITALS: BP 122/72; PULSE 96; O2SAT 98
[2024-03-07 18:47] LABS: Ictotest Urine Negative (Negative)
[2024-03-07 18:56] LABS: Alanine Aminotransferase 21 IU/L (<35); Albumin 4.2 g/dL (3.5-5.0); Albumin Globulin Ratio 1.8 (1.0-2.8); Alkaline Phosphatase 86 U/L (38-126); Aspartate Aminotransferase 26 IU/L (14-36); BUN Creatinine Ratio 19.1 (6-22); Bilirubin Total 0.4 mg/dL (0.2-1.3); Blood Urea Nitrogen 13 mg/dL (7-17); Calcium 8.7 mg/dL (8.4-10.2); Carbon Dioxide 25 mmol/L (22-32); Chloride 105 mmol/L (98-107); Estimated Glomerular Filt Rate > 60 mL/min (>60); Globulin 2.4 g/dL (1.7-4.1); Glucose 115 mg/dL (70-100); HEMOLYSIS < 15 (0-50); Lipase 72 U/L (23-300); Sodium 136 mmol/L (137-145); Total Protein 6.6 g/dL (6.3-8.2)
[2024-03-07 18:57] LABS: Bacteria Urine Few (2-10); Culture Indicated Urine Specimen Cultured; Mucus Urine 3+ (Negative); RBC Urine 0-1/HPF (0-5/HPF); Squamous Epithelial Cell Urine 1-5 /HPF (0-5/HPF); Urine Volume 10mL (spun); WBC Urine 1-5/HPF (0-5/HPF)
[2024-03-07 18:59] LABS: Pregnancy Test Serum,Qual Negative (Negative)
--- NOTE | 2024-03-07 19:19 | ED_ITS ---
HPI - General Adult General Chief complaint: Abdominal Pain Stated complaint: pop in abd/pain Time Seen by Provider: 03/07/24 18:18 Source: patient Mode of arrival: Ambulatory History of Present Illness HPI narrative: Patient is a 43-year-old female who is here for evaluation for abdominal discomfort. She states that the symptoms actually started this morning but when she was driving back from [place] she stated that she felt a ?pop? in the left side of her abdomen. She then states she feels like something is moving around in her abdomen. No vomiting. No fevers. No recent travel. No recent antibiotics. No urinary symptoms. Review of her medical record shows that she has been seen multiple times in multiple emergency departments for various concerns about things moving around inside of her. Related Data Previous Rx's Medication Instructions Recorded medroxyprogesterone 10 mg tablet 10 mg PO SEE INSTRUCTIONS #30 tabs 07/09/17 phenazopyridine 100 mg tablet 100 mg PO TID PRN pain 6 doses #6 11/19/21 (Pyridium) tabs Allergies Allergy/AdvReac Type Severity Reaction Status Date / Time codeine [CODEINE] Allergy Severe Unverified 01/05/18 12:55 sulfamethoxazole Allergy Severe Unverified 01/05/18 12:55 [From SEPTRA] trimethoprim [From SEPTRA] Allergy Severe Unverified 01/05/18 12:55 Review of Systems Review of Systems Narrative: See HPI Patient History Surgical History Status post loop electrosurgical excision procedure (LEEP) of cervix Social History Smoking Status: Never smoker Smoking Status: Never smoker alcohol intake frequency: a few times a month Substance Use Type: does not use Exam Initial Vital Signs Initial Vital Signs: Vital Signs Temperature 98.6 F 03/07/24 17:57 Pulse Rate 109 H 03/07/24 17:57 Respiratory Rate 18 03/07/24 17:57 Blood Pressure 138/80 03/07/24 17:57 Pulse Oximetry 99 03/07/24 17:57 Oxygen Delivery Method Room Air 03/07/24 17:57 Const General: cooperative, comfortable and No ill appearing HENMT Head: normal to inspection and normocephalic Resp Effort & Inspection: normal respiratory effort GI Inspection: normal to inspection and non-distended Palpation: soft and No tender Skin General: no rashes or lesions noted Neuro General: patient alert and patient awake Course Orders Ordered: ED Orders 03/07/24 18:20 XR abdomen 1V Stat 03/07/24 18:34 Ictotest Urine Stat Urine Culture Stat Urine Microscopic Stat 03/07/24 18:35 Complete Blood Count AUTO DIFF Stat Comprehensive Metabolic Panel Stat Lipase Stat Test Serum,Qual Stat Vital Signs Vital signs: Vital Signs - 8 hr 03/07/24 17:57 03/07/24 18:40 03/07/24 18:45 Temperature 98.6 F Pulse Rate 109 H 96 H 96 H Respiratory Rate 18 Blood Pressure 138/80 124/74 122/72 Pulse Oximetry 99 98 98 Oxygen Delivery Method Room Air Room Air Room Air Medical Decision Making Medical Records Medical records reviewed: Yes I reviewed the patient's medical records. Lab Data Lab results reviewed: Yes I reviewed the patient's lab results. 03/07/24 18:35 03/07/24 18:35 Labs: Lab Results 03/07/24 03/07/24 Range/Units 18:34 18:35 WBC 7.9 (4.5-11.0) X10^3/uL RBC 4.51 (4.0-5.2) X10^6/uL Hgb 13.5 (12.0-16.0) g/dL Hct 40.2 (36-46) % MCV 89.1 (80-100) fL MCH 29.8 (26-34) PG MCHC 33.5 (30-36) % RDW 13.7 (11.6-14.8) % Plt Count 311 (150-400) X10^3/uL Neut % (Auto) 58.3 (50-75) % Lymph % (Auto) 28.8 (25-40) % [place] % (Auto) 9.6 (3-14) % Eos % (Auto) 2.5 (2-4) % Baso % (Auto) 0.8 (0-2) % Neut # (Auto) 4600 (3566-5957) /uL Lymph # (Auto) 2300 (7044-0770) /uL [place] # (Auto) 800 (0-900) /uL Eos # (Auto) 200 (0-450) /uL Baso # (Auto) 100 (0-100) /uL Sodium 136 L (137-145) mmol/L Potassium 4.0 (3.4-5.1) mmol/L Chloride 105 (98-107) mmol/L Carbon Dioxide 25 (22-32) mmol/L BUN 13 (7-17) mg/dL Creatinine 0.68 (0.52-1.04) mg/dL Estimated GFR > 60 (>60) mL/min BUN/Creatinine Ratio 19.1 (6-22) Glucose 115 H (70-100) mg/dL Calcium 8.7 (8.4-10.2) mg/dL Total Bilirubin 0.4 (0.2-1.3) mg/dL AST 26 (14-36) IU/L ALT 21 (<35) IU/L Alkaline Phosphatase 86 (38-126) U/L Total Protein 6.6 (6.3-8.2) g/dL Albumin 4.2 (3.5-5.0) g/dL Globulin 2.4 (1.7-4.1) g/dL Albumin/Globulin Ratio 1.8 (1.0-2.8) Lipase 72 (23-300) U/L Serum , Qual Negative (Negative) Ur Bilirubin Confirm Negative (Negative) Urine RBC 0-1/hpf D (0-5/HPF) Urine WBC 1-5/hpf (0-5/HPF) Ur Squamous Epith Cells 1-5 /hpf (0-5/HPF) Urine Bacteria Few (2-10) H (None) Urine Mucus 3+ H (Negative) Ur Culture Indicated? Specimen cultured Vol Urine Centrifuged 10ml (spun) Urine Dip Bedside Urine Glucose Negative Bedside Urine Bilirubin + 1 Bedside Urine Ketone - Negative Urine Specific [place] 1.030 Bedside Urine Occult Blood - Negative Bedside Urine pH 6.0 Bedside Urine Protein - Negative Bedside Urine Urobilinogen - Negative Bedside Urine Nitrite - Negative Bedside Urine Leukocytes + 70 Esterase Point of care testing: Urine Dip Bedside Urine Glucose Negative Bedside Urine Bilirubin + 1 Bedside Urine Ketone - Negative Urine Specific [place] 1.030 Bedside Urine Occult Blood - Negative Bedside Urine pH 6.0 Bedside Urine Protein - Negative Bedside Urine Urobilinogen - Negative Bedside Urine Nitrite - Negative Bedside Urine Leukocytes + 70 Esterase Imaging Data Abdominal x-ray: Radiologist's Impression: PROCEDURE: XR ABDOMEN 1V INDICATIONS: Abdominal pain TECHNIQUE: One view of the abdomen acquired. COMPARISON: None. FINDINGS: Surgical changes and devices: Intrauterine device projecting over the pelvis. Bowel: Bowel gas pattern is normal. Large burden of stool in the colon. Soft tissues: No suspicious abdominal calcifications. Visualized solid organ contours appear normal in size. Bones: No suspicious bony lesions. IMPRESSION: Large burden of stool, correlate for constipation. Nonobstructive bowel gas pattern. MDM Narrative Medical decision making narrative: Labs and x-ray are unremarkable. The x-ray does show a large amount of stool burden. I did discuss this with her. She states that actually her abdominal discomfort has improved since arrival here in the ER. Based on her exam and her x-ray I do feel that we can hold on any advanced imaging such as a CT scan. I feel that an acute intra-abdominal surgical issue is unlikely based on her exam. I discuss the use of laxatives with her. We discussed return precautions and follow-up instructions. She expressed understanding and agreement with plan. Discharge Plan Departure Patient Disposition: Home Clinical Impression: Abdominal pain, Constipation Instructions: DI for Abdominal Pain-Adult, DI for Constipation Activity Restrictions/Additional Instructions: Do recommend that you continue to take all of your medications as directed and also start on a laxative like we discussed. Contact your primary doctor for follow-up. Return to the emergency department for new symptoms. Prescriptions: No Action medroxyprogesterone 10 MG tablet 10 mg PO SEE INSTRUCTIONS Qty: 30 0RF phenazopyridine [Pyridium] 100 mg tablet 100 mg PO TID PRN (Reason: pain) Qty: 6 0RF Referrals: Ashleigh Renner MD [Primary Care Provider] - Stand Alone Forms: Patient Portal/API
== END 2024-03-07 19:25 | disposition home or self-care (01) ==
PROVIDERS: Emergency Provider Emergency Medicine; Family Provider Specialist; PCP Specialist
DX: R10.9 Unspecified abdominal pain (principal); K59.00 Constipation, unspecified
CPT/HCPCS: 36415; 74018; 80053; 81003; 81015; 83690; 84703; 85025; 87086; 99283

== ENCOUNTER 2024-03-09 20:33 | Emergency (ER) | payer OTHER, MEDICAID, SELFPAY ==
[2024-03-09 20:35] VITALS: BP 131/76; PULSE 105; RESP 20; TEMP 37; O2SAT 100; BMI 32.5
--- NOTE | 2024-03-09 20:40 | EKG_ITS ---
[address] [address] Test Date: 2024-03-09 Pat Name: Sonia Turner Department: [facility] Room: Gender: Female [employer] Inserter: MORENA : 1980 Requested By: Order Number: [id number] Reading MD: Juan Segal MD Measurements Intervals [place] Rate: 100 P: 35 MT: 126 QRS: 20 QRSD: 80 T: 54 QT: 338 QTc: 436 Interpretive Statements Normal sinus rhythm Electronically Signed On 03-10-2024 7:32:08 PDT by Juan Segal MD
[2024-03-09 21:00] VITALS: BP 125/76; PULSE 98; RESP 16; O2SAT 100
--- NOTE | 2024-03-09 21:14 | PC.NURSE ---
patient complains of mid abd pain and tightness. She denies diarrhea, nausea, vomiting. She states that she has been having this pain in her ABD for 14 days. She states that she has a history of anxiety and this feels similar but not the exact same. She also started wellbutrin again two days ago
[2024-03-09 21:30] VITALS: BP 127/76; PULSE 88; RESP 18; O2SAT 100
[2024-03-09 21:39] VITALS: PULSE 84; O2SAT 100
[2024-03-09 21:40] VITALS: BP 127/75
--- NOTE | 2024-03-09 22:17 | ED.CHESTPAIN ---
HPI - Chest Pain General Chief Complaint: Chest Pain Stated Complaint: chest pain Time Seen by Provider: 03/09/24 21:18 Source: patient Mode of arrival: Ambulatory Limitations: no limitations History of Present Illness HPI narrative: Patient is a 43-year-old female here for evaluation of chest discomfort she states has been intermittent for the past 2 weeks. She was seen at an outside facility this morning and had an EKG but did not stay for further evaluation. She also states she feels like there is a ?ball? in her abdomen. Feels like something is moving around in her abdomen. States that the chest discomfort is like something moving around in her chest. She has been seen multiple times for concerns of things moving in her abdomen and in her chest. Not worse with palpation. No fevers. No coughing. No shortness of breath. Related Data Previous Rx's Medication Instructions Recorded medroxyprogesterone 10 mg tablet 10 mg PO SEE INSTRUCTIONS #30 tabs 07/09/17 phenazopyridine 100 mg tablet 100 mg PO TID PRN pain 6 doses #6 11/19/21 (Pyridium) tabs Allergies Allergy/AdvReac Type Severity Reaction Status Date / Time codeine [CODEINE] Allergy Severe Unverified 01/05/18 12:55 sulfamethoxazole Allergy Severe Unverified 01/05/18 12:55 [From SEPTRA] trimethoprim [From SEPTRA] Allergy Severe Unverified 01/05/18 12:55 Review of Systems Review of Systems ROS Unobtainable: All systems reviewed & are unremarkable except as noted in HPI and below Patient History Surgical History Status post loop electrosurgical excision procedure (LEEP) of cervix Social History Smoking Status: Current every day smoker Smoking Status: Current every day smoker tobacco type: vaping alcohol intake frequency: a few times a month Substance Use Type: does not use Exam Initial Vital Signs Initial Vital Signs: Vital Signs Temperature 98.6 F 03/09/24 20:35 Pulse Rate 105 H 03/09/24 20:35 Respiratory Rate 20 03/09/24 20:35 Blood Pressure 131/76 03/09/24 20:35 Pulse Oximetry 100 03/09/24 20:35 Oxygen Delivery Method Room Air 03/09/24 20:35 Const General: cooperative, comfortable and No ill appearing HENMT Head: normal to inspection and normocephalic Resp Effort & Inspection: normal respiratory effort Auscultation: clear to auscultation bilaterally Cardio Rate: regular rate Rhythm: regular rhythm GI Inspection: normal to inspection and non-distended Skin General: no rashes or lesions noted Course Orders Ordered: ED Orders 03/09/24 20:40 EKG-12 Lead Stat Vital Signs Vital signs: Vital Signs - 8 hr 03/09/24 20:35 03/09/24 21:00 03/09/24 21:30 Temperature 98.6 F Pulse Rate 105 H 98 H 88 Respiratory Rate 20 16 18 Blood Pressure 131/76 125/76 127/76 Pulse Oximetry 100 100 100 Oxygen Delivery Method Room Air Room Air Room Air 03/09/24 21:39 03/09/24 21:40 Temperature Pulse Rate 84 Respiratory Rate Blood Pressure 127/75 Pulse Oximetry 100 Oxygen Delivery Method MDM - Chest Pain Medical Records Data Attestation: I reviewed the patient's medical records. ECG Data Attestation: I personally reviewed and interpreted this ECG as follows: Interpretation: Sinus rhythm Ventricular rate of 100 Normal axis Normal QRS Normal QTC No ST T wave changes MDM Narrative Medical decision making narrative: I do have low suspicion for ACS. EKG at this department similar to the EKG from the prior ED visit. I was able to review that. Low suspicion for ACS. Low suspicion for pneumonia. Provided reassurance. Recommended the patient contact your primary provider for follow-up. Discharge Plan Departure Patient Disposition: Home Clinical Impression: Atypical chest pain Instructions: DI for Atypical Chest Pain Activity Restrictions/Additional Instructions: Your workup here in the emergency department is very reassuring. Recommend that you contact your primary doctor to discuss the indications for a Holter monitor and also the indications for referral to see gastroenterology. Prescriptions: No Action medroxyprogesterone 10 MG tablet 10 mg PO SEE INSTRUCTIONS Qty: 30 0RF phenazopyridine [Pyridium] 100 mg tablet 100 mg PO TID PRN (Reason: pain) Qty: 6 0RF Referrals: Ashleigh Renner MD [Primary Care Provider] - Stand Alone Forms: Patient Portal/API
== END 2024-03-09 22:28 | disposition home or self-care (01) ==
PROVIDERS: Emergency Provider Emergency Medicine; Family Provider Specialist; PCP Specialist
DX: R07.89 Other chest pain (principal)
CPT/HCPCS: 93005; 93010; 99281; 99283